=== PATIENT | male | born 1970 | race Caucasian/White ===

== ENCOUNTER → 2017-04-02 | Outpatient (CLI) | payer MEDICARE, OTHER ==
[~2017-04-02] MED LIST: ABILIFY; ABILIFY PO; ALPRAZOLAM1 MG PO; AMLODIPINE BESYL5 MG PO; BUSPIRONE HCL10 M1 PO; CELEXA20 MG PO; ESKALITH; GEODAN PO; IBUPROFEN800 MG PO; LOPRESSOR PO; LORTAB 5/500 TA1 TA1 PO; MULTI-DAY VITAM1 TAB PO; NAPROXEN PO; NILSTAT PO; PRILOSEC PO; PRILOSEC40 MG; PROSTATE HEALT1 EACH PO; RANITIDINE HCL150 M1 PO; SEROQUEL; TEMAZEPAM30 MG PO; VICODIN 5/500 T1 TAB PO; ZOLOFT; ZYPREXA PO
--- NOTE | ~2017-04-02 | US77 ---
[facility] A Service of [facility] & [facility] RADIOLOGY TEXT RESULTS PATIENT: ARNIE STALLWORTH LOCATION: [facility] : 70 UNIT #: [id number] AGE: [address]: Duarte Cervantes MD SEX: M ORDER DR: [id number] [facility] [address] [place], [place] [address] [id number] O MR#: [id number] Acc #: [id number] NAME: ARNIE STALLWORTH : 1970 SEX: M STUDY DATE/TIME: 04/02/2017 17:25 UNIT: [facility] ROOM: STUDY DESCRIPTION: US Kidney Bilateral Complete Attending Physician: Duarte Cervantes M.D. Referring Physician: Duarte Cervantes M.D. Ordering Physician: Duarte Cervantes M.D. Primary Care Physician: No Primary Care Physician MEDICAL IMAGING REPORT This report is preliminary unless electronic signature is present EXAM Renal ultrasound 04/02/2017. HISTORY Followup renal cyst. FINDINGS The right kidney measures 10.7 cm, while the left kidney measures 9.2 cm in longitudinal dimensions. There is no evidence of hydronephrosis or nephrolithiasis. There is an indeterminate 1.3-cm hypoechoic nodule located on the midportion of the right kidney. This was not seen on the previous examination of 05/31/2014. It contains internal echoes and cannot be classified as a cyst. Recommend correlation with either CT scan of the kidneys with contrast using dedicated renal protocol or renal MRI with gadolinium to exclude renal neoplasm. There is normal renal cortical echogenicity. Images of the bladder are normal. IMPRESSION Indeterminate 1.3-cm hypoechoic mass on the right kidney which was not identified on the previous examination dated 05/31/2014. Renal neoplasm is not excluded on the basis of this examination. Correlation with either CT scan of the kidneys with contrast using dedicated renal protocol or renal MRI with gadolinium is recommended for further evaluation. STAT * RESULT Dictated by... Juan Pablo Palomino M.D. THIS IS AN ELECTRONICALLY VERIFIED REPORT Juan Pablo Palomino M.D. at 04/03/2017 3:04 PM [facility] A Service of [facility] & [facility] RADIOLOGY TEXT RESULTS PATIENT: ARNIE STALLWORTH LOCATION: [facility] : [birth year] UNIT #: [id number] AGE: [address]: Duarte Cervantes MD SEX: M ORDER DR: Maira TD: 04/02/2017 19:19 JOB #: [id number] MEDICAL IMAGING REPORT Page 1 of 1 COPY
--- NOTE | ~2017-04-02 | US115 ---
[facility] A Service of [facility] RADIOLOGY TEXT RESULTS PATIENT: ARNIE STALLWORTH LOCATION: [facility] : 70 UNIT #: [id number] AGE: [address]: Duarte Cervantes MD SEX: M ORDER DR: [id number] [facility] [address] [place], [place] [address] [id number] O MR#: [id number] Acc #: [id number] NAME: ARNIE STALLWORTH : 1970 SEX: M STUDY DATE/TIME: 04/02/2017 17:35 UNIT: [facility] ROOM: STUDY DESCRIPTION: US Scrotum and Contents Attending Physician: Duarte Cervantes M.D. Referring Physician: Duarte Cervantes M.D. Ordering Physician: Duarte Cervantes M.D. Primary Care Physician: Primary Care Physician No MEDICAL IMAGING REPORT This report is preliminary unless electronic signature is present EXAM Testicular ultrasound with color flow Doppler 04/02/2017 HISTORY Bilateral testicular pain and swelling for 1 month. FINDINGS Cowan-scale images of the scrotum were obtained as well as Doppler waveform spectral analysis and color flow Doppler imaging. The right testicle measures 4.2 cm x 2.6 cm x 1.8 cm while the left testicle measures 2.5 cm x 1.7 cm x 3.1 cm. Both testes are homogeneous in echotexture and demonstrate no cystic or solid mass lesions. Color-flow Doppler images show normal blood flow to both testes. There is a 9 mm cyst or spermatocele involving the left epididymis. Trace scrotal fluid is seen. IMPRESSION 1. The testes are normal bilaterally. No testicular mass is seen. Color-flow Doppler images show normal blood flow to both testes. 2. 9 mm cyst or spermatocele involving the head of the left epididymal epididymis. Dictated by... Juan Pablo Palomino M.D. THIS IS AN ELECTRONICALLY VERIFIED REPORT Juan Pablo Palomino M.D. at 04/03/2017 3:06 PM AUGIE/davi TD: 04/03/2017 08:05 JOB #: [id number] MEDICAL IMAGING REPORT Page 1 of 1 COPY
== END | disposition home or self-care (01) ==
LOC: CGUS 15:42
DX: N28.1 Cyst of kidney, acquired (principal); N28.89 Other specified disorders of kidney and ureter; N50.89 Other specified disorders of the male genital organs
CPT/HCPCS: 76770; 76870; 93976

== ENCOUNTER → 2017-06-17 | Outpatient (CLI) | payer MEDICARE ==
--- NOTE | ~2017-06-17 | CT6 ---
[facility] A Service of [facility] RADIOLOGY TEXT RESULTS PATIENT: ARNIE STALLWORTH LOCATION: [facility] : 70 UNIT #: [id number] AGE: [address]: Duarte Cervantes MD SEX: M ORDER DR: [id number] [place] [id number] [facility] [place] [facility] [place], [place] [address] [id number] O MR#: [id number] Acc #: [id number] NAME: ARNIE STALLWORTH : 1970 SEX: M STUDY DATE/TIME: 06/17/2017 17:07 UNIT: [facility] ROOM: STUDY DESCRIPTION: CT Abdomen WWo Cont Attending Physician: Duarte Cervantes M.D. Referring Physician: Duarte Cervantes M.D. Ordering Physician: Duarte Cervantes M.D. Primary Care Physician: [facility] IMAGING REPORT This report is preliminary unless electronic signature is present EXAM CT of the abdomen with and without contrast INDICATION Followup renal mass seen on ultrasound. TECHNIQUE CT of the abdomen was performed before and after the administration of IV contrast using renal mass protocol. Coronal and sagittal reformatted images were obtained. This CT exam was performed with one or more of the following radiation dose reduction techniques: automatic exposure control, adjustment of mA and/or kV according to patient size, and iterative reconstruction. COMPARISON ultrasound from 04/02/2017 FINDINGS The lung bases are clear. The liver, gallbladder and spleen are unremarkable. There are multiple bilateral renal cysts. There is no evidence for a solid renal mass. There is no renal stone or hydronephrosis. The adrenal glands are unremarkable. The pancreas is unremarkable. Visualized bowel contents are unremarkable. The bone windows are unremarkable. IMPRESSION Bilateral renal cysts. No evidence for solid mass. Dictated by... Malvin Marina M.D. THIS IS AN ELECTRONICALLY VERIFIED REPORT [facility] A Service of [facility] RADIOLOGY TEXT RESULTS PATIENT: ARNIE STALLWORTH LOCATION: [facility] : 70 UNIT #: [id number] AGE: [address]: Duarte Cervantes MD SEX: M ORDER DR: Malvin Marina M.D. at 06/18/2017 3:51 PM AN/liset TD: 06/18/2017 13:07 JOB #: [id number] MEDICAL IMAGING REPORT Page 1 of 1 COPY
[2017-06-17 22:36] LABS: POC - CREATININE 1.41 mg/dL (0.64-1.27)
== END | disposition home or self-care (01) ==
LOC: CCAT 15:58
PROVIDERS: Urology
DX: N28.89 Other specified disorders of kidney and ureter (principal); Q61.02 Congenital multiple renal cysts
CPT/HCPCS: 74170; 82565; Q9967